=== PATIENT | female | born 1975 | race Caucasian/White ===

== ENCOUNTER → 2021-01-20 12:16 | Outpatient (CLI) | payer OTHER, MEDICAID, SELFPAY ==
[2021-01-20] MEDS: COVID-19 VACC #1, MRNA(MOD) 100 MCG/0.5 ML VIAL IM (12:28)
== END ==
PROVIDERS: PCP Specialist; Visit Provider Internal Medicine
DX: Z23 Encounter for immunization (principal)
CPT/HCPCS: 0011A; 91301

== ENCOUNTER → 2021-02-17 12:22 | Outpatient (CLI) | payer OTHER, MEDICAID, SELFPAY ==
[2021-02-17] MEDS: COVID-19 VACC #2, MRNA(MOD) 100 MCG/0.5 ML VIAL IM (12:26)
== END ==
PROVIDERS: PCP Specialist; Visit Provider Internal Medicine
DX: Z23 Encounter for immunization (principal)
CPT/HCPCS: 0012A; 91301